=== PATIENT | female | born 1995 | race Caucasian/White ===

== ENCOUNTER 2017-02-23 16:36 | Emergency (ER) ==
[2017-02-23 16:41] VITALS: BP 132/81; TEMP 99; BMI 30.1
[2017-02-23] MEDS ORDERED: ZOFRAN 4 MG/2 ML IM STA (17:08)
[2017-02-23] MEDS ORDERED: MORPHINE 4 MG/ML SYRINGE IM STA (17:08)
--- NOTE | 2017-02-23 17:08 | ED.PDOC ---
General ED Provider: Dr. SANJAY CALDERÓN Chief Complaint: Headache Stated Complaint: headache Time Seen by Physician: 16:39 Mode of Arrival: Walk-In Information Source: Patient, Family Exam Limitations: No limitations Primary Care Provider: DARIO ALVAREZ Nursing and Triage Documentation Reviewed and Agree: Yes Neurological Complaint Exam - Headache Complaint/Exam Onset: Gradual Duration: 1 day Symptoms Are: Still present Episodes Lasting: Hours Worst Headache Ever: No Initial Severity: Moderate Current Severity: Moderate Location: Left, Temporal Character: Reports: Throbbing Aggravating: Reports: None Alleviating: Reports: None Associated Signs and Symptoms: Denies: Dizziness, Seizure, Nausea, Vomiting, Sinus pressure, Fever, Neck pain, Neck stiffness, Decreased LOC, Visual changes Related History: Reports: Similar episode Related Surgical History: Reports: None SAH Risk Factors: Reports: None Meningitis Risk Factors: Reports: None SDH Risk Factors: Reports: None Temporal Arteritis Risk Factors: Reports: None Fundoscopic Exam: Present: Normal Findings Papilledema Present: No Temporal Artery Tenderness: Present: None Sinus Tenderness: Present: None TMJ Tenderness: Present: None Glascow Coma Scale (see protocol): 15 Meningeal Signs Positive: No Pain on Passive Flexion-Positive Kernig's: No ROM Limited In: No Limitiations Focal Weakness: Present: None Focal Sensory Loss: Present: None Gait: Normal Nystagmus Present: No Gag Reflex Present: Yes Differential Diagnoses: Migraine Review of Systems - Review Of Systems Constitutional: Reports: No symptoms Eyes: Reports: No symptoms Ears, Nose, Mouth, Throat: Reports: No symptoms Respiratory: Reports: No symptoms Cardiac: Reports: No symptoms GI: Reports: No symptoms : Reports: No symptoms Musculoskeletal: Reports: No symptoms Skin: Reports: No symptoms Neurological: Reports: Headache Endocrine: Reports: No symptoms Hematologic/Lymphatic: Reports: No symptoms All Other Systems: Reviewed and Negative Past Medical History - Past Medical History Endocrine: Reports: None Cardiovascular: Reports: None Respiratory: Reports: None Hematological: Reports: None Gastrointestinal: Reports: None Genitourinary: Reports: None Neuro/Psych: Reports: None Musculoskeletal: Reports: None Cancer: Reports: None Last Menstrual Period: 02/19/17 - Surgical History General Surgical History: Reports: , Other (EAR TUBES) - Family History Family History: Reports: Kidney (Stone) - Social History Smoking Status: Never smoker Hx Substance Use: No Alcohol Screening: None - Immunizations Tetanus Shot up to Date: Yes Physical Exam - Physical Exam Appearance: Well-appearing, No pain distress, Well-nourished Eyes: PANTERA, EOMI, Conjunctiva clear ENT: Ears normal, Nose normal, Oropharynx normal Respiratory: Airway patent, Breath sounds clear, Breath sounds equal, Respirations nonlabored Cardiovascular: RRR, Pulses normal, No rub, No murmur GI/: Soft, Nontender, No masses, Bowel sounds normal, No Organomegaly Musculoskeletal: Normal strength, ROM intact, No edema, No calf tenderness Skin: Warm, Dry, Normal color Neurological: Sensation intact, Motor intact, Reflexes intact, Cranial nerves intact, Alert, Oriented Psychiatric: Affect appropriate, Mood appropriate Critical Care Note - Critical Care Note Total Time (mins): 0 Course - Course Vital Signs: Temp Pulse Resp BP Pulse Ox 02/23/17 16:37 99 F 89 20 132/81 96 Departure - Departure Time of Disposition: 17:07 Disposition: HOME SELF-CARE Discharge Problem: Headache Instructions: Migraine Headache (ED) Condition: Good Pt referred to PMD for follow-up: No Additional Instructions: Please call your Family Physician as soon as possible to schedule a follow-up appointment. Allergies/Adverse Reactions: Allergies azithromycin [From Zithromax] Adverse Reaction (Verified 08/21/14 11:31) Penicillins Adverse Reaction (Verified 08/21/14 11:31) prednisone Adverse Reaction (Verified 08/21/14 11:31) Home Medications: Ambulatory Orders Ondansetron HCl [Zofran] 8 mg PO BID PRN 08/21/14 Promethazine HCl [Phenergan Tab] 25 mg PO Q6-8H PRN 08/21/14
== END 2017-02-23 17:43 | disposition home or self-care (01) ==
LOC: ED 16:36
DX: R51 Headache (principal)
CPT/HCPCS: 96372; 99282

== ENCOUNTER 2017-07-14 17:55 | Emergency (ER) ==
[2017-07-14 17:59] VITALS: BP 121/64; TEMP 99.5; BMI 32.9
--- NOTE | 2017-07-14 18:14 | ED.PDOC ---
General ED Provider: Dr. SANJAY CALDERÓN Chief Complaint: Abdominal Pain Stated Complaint: abdominal pain RUQ Time Seen by Physician: 18:00 Mode of Arrival: Walk-In Information Source: Patient Exam Limitations: No limitations Primary Care Provider: DARIO ALVAREZ Nursing and Triage Documentation Reviewed and Agree: Yes GI Complaint Exam - Abdominal Pain Complaint/Exam Onset: Gradual Duration: CHRONIC AFTER BAHRAINI FRIES Symptoms Are: Resolved Timing: Intermittent Initial Severity: Moderate Current Severity: None Location of Pain: RUQ Radiates To: Reports: Back Character: Reports: Cramping Aggravating: Reports: Food Alleviating: Reports: None Associated Signs and Symptoms: Denies: Diaphoresis, Fever, Cough, Chest pain, Dizziness, Back pain, Constipation, Blood in stool, Dysuria, Urinary frequency, Decreased urine output, Decreased appetite, Vaginal bleeding, Vaginal discharge , Nausea, Vomiting, Diarrhea, Sore throat, Decreased activity Related History: Reports: Similar episode AAA Risk Factors: Reports: None Cardiac Risk Factors: Reports: None Ectopic Risk Factors: Reports: None Ovarian Torsion Risk Factors: Reports: None Surgical Obstruction Risk Factors: Reports: None Related Surgical History: Reports: None Patient Rh Status: Unknown Abdominal Findings: Present: None Differential Diagnoses: GB Review of Systems - Review Of Systems Constitutional: Reports: No symptoms Eyes: Reports: No symptoms Ears, Nose, Mouth, Throat: Reports: No symptoms Respiratory: Reports: No symptoms Cardiac: Reports: No symptoms GI: Reports: Abdominal pain (RUQ), Nausea : Reports: No symptoms Musculoskeletal: Reports: No symptoms Skin: Reports: No symptoms Neurological: Reports: No symptoms Endocrine: Reports: No symptoms Hematologic/Lymphatic: Reports: No symptoms All Other Systems: Reviewed and Negative Past Medical History - Past Medical History Endocrine: Reports: None Cardiovascular: Reports: None Respiratory: Reports: None Hematological: Reports: None Gastrointestinal: Reports: None Genitourinary: Reports: None Neuro/Psych: Reports: None Musculoskeletal: Reports: None Cancer: Reports: None Last Menstrual Period: 07/12/17 - Surgical History General Surgical History: Reports: , Other (EAR TUBES) - Family History Family History: Reports: Kidney (Stone) - Social History Smoking Status: Never smoker Hx Substance Use: No Alcohol Screening: None - Immunizations Tetanus Shot up to Date: No Physical Exam - Physical Exam Appearance: Well-appearing, No pain distress, Well-nourished Eyes: PANTERA, EOMI, Conjunctiva clear ENT: Ears normal, Nose normal, Oropharynx normal Respiratory: Airway patent, Breath sounds clear, Breath sounds equal, Respirations nonlabored Cardiovascular: RRR, Pulses normal, No rub, No murmur GI/: Soft, Nontender, No masses, Bowel sounds normal, No Organomegaly Musculoskeletal: Normal strength, ROM intact, No edema, No calf tenderness Skin: Warm, Dry, Normal color Neurological: Sensation intact, Motor intact, Reflexes intact, Cranial nerves intact, Alert, Oriented Psychiatric: Affect appropriate, Mood appropriate Interpretation - Radiology Interpretation Radiology Interpretation By: Radiologist Critical Care Note - Critical Care Note Total Time (mins): 0 Course - Course Orders, Labs, Meds: Orders Category Date Time Status AMYLASE Stat LAB 07/14/17 18:11 Ordered CBC W/ AUTO DIFF Stat LAB 07/14/17 18:11 Ordered COMPREHENSIVE METABOLIC PANEL Stat LAB 07/14/17 18:11 Ordered LIPASE Stat LAB 07/14/17 18:11 Ordered URINALYSIS C & S IF INDICATED Stat LAB 07/14/17 18:[address] ABDOMEN/PELVIS WO CONTRAST Stat RADS 07/14/17 18:11 Ordered Vital Signs: Temp Pulse Resp BP Pulse Ox 07/14/17 17:56 99.5 F 100 H 18 121/64 98 Departure - Departure Time of Disposition: 19:20 Disposition: HOME SELF-CARE Discharge Problem: Abdominal pain Instructions: Abdominal Pain (ED) Condition: Good Pt referred to PMD for follow-up: Yes Additional Instructions: Please call your Family Physician as soon as possible to schedule a follow-up appointment. Allergies/Adverse Reactions: Allergies azithromycin [From Zithromax] Adverse Reaction (Verified 07/14/17 17:59) Penicillins Adverse Reaction (Verified 07/14/17 17:59) prednisone Adverse Reaction (Verified 07/14/17 17:59) Home Medications: Ambulatory Orders Topiramate [Topamax] 50 mg PO DAILY 07/14/17
[2017-07-14 18:30] LABS: BASOPHILS % (AUTO) 0.4 % (0.0-3.0); EOSINOPHILS # (AUTO) 0.1 K/ul (0.0-0.7); EOSINOPHILS % (AUTO) 1.6 % (0.0-7.0); HEMATOCRIT 38.8 % (37.0-47.0); HEMOGLOBIN 12.8 g/dl (12.0-16.0); IMMATURE GRANULOCYTE % (AUTO) 0.4 % (0.0-5.0); LYMPHOCYTES # (AUTO) 2.6 K/uL (0.60-3.4); LYMPHOCYTES % (AUTO) 38.8 (10.0-50.0); MEAN CORPUSCULAR HEMOGLOBIN 27.6 pg (27.0-31.0); MEAN CORPUSCULAR VOLUME 83.6 fl (81.0-99.0); MONOCYTES # (AUTO) 0.6 K/uL (0.4-2.0); MONOCYTES % (AUTO) 9.3 (0-10); NEUTROPHILS # (AUTO) 3.3 K/ul (2.0-6.9); NEUTROPHILS % (AUTO) 49.5; PLATELET COUNT 260 10^3/uL (140-440); RED BLOOD COUNT 4.64 10^6/ul (4.20-5.40)
[2017-07-14 18:32] LABS: BILIRUBIN,URINE Negative (NEGATIVE); KETONES,URINE Trace (NEGATIVE); LEUKOCYTE ESTERASE ,URINE Negative (NEGATIVE); NITRITE,URINE Negative (NEGATIVE); PROTEIN,URINE Negative (NEGATIVE); URINE, BLOOD Negative (NEGATIVE)
[2017-07-14 18:35] LABS: ADD URINE MICROSCOPIC YES; BACTERIA,URINE TRACE (NOT PRESENT); URINE PREGNANCY INTERNAL QC INTERNAL QC VALID
[2017-07-14] MEDS ORDERED: LIDOCAINE HCL 1% SDV SUBCUT STA (18:39)
[2017-07-14] MEDS ORDERED: ROCEPHIN IM STA (18:39)
[2017-07-14 18:50] LABS: ALBUMIN 3.4 g/dL (3.4-5.0); ANION GAP 9.8; BILIRUBIN,TOTAL 0.17 mg/dL (0.00-1.20); BUN/CREATININE RATIO 16.25; CALCIUM 9.2 mg/dL (8.2-10.2); CREATININE 0.8 mg/dL (0.60-1.30); POTASSIUM 3.8 mmol/L (3.5-5.10); TOTAL PROTEIN 6.8 g/dL (6.4-8.2)
--- NOTE | 2017-07-14 19:13 | CT ---
EXAM: CT scan abdomen pelvis without contrast HISTORY: Upper abdominal pain nausea COMPARISON: CT scan abdomen pelvis 11/30/2015 FINDINGS: Contiguous axial images obtained through the abdomen pelvis without contrast utilizing 5-m m collimation. Sagittal and coronal reconstructions were imaged and reviewed. The visualized lung b ases are clear. The gallbladder is contracted. There is a hiatal hernia. The liver, pancreas, sple en and adrenal glands have normal unenhanced CT appearance. The abdominal aorta is normal course and caliber. Punctate nonobstructive calculi are seen in the bilateral kidneys. There is no CT evidenc e of appendicitis. There is scattered subcentimeter mesenteric lymph nodes. There is no free fluid o r inflammatory changes. Bone windows reveals no evidence of lytic or blastic lesions IMPRESSION: No acute intra-abdominal findings. Nonobstructive bilateral nephrolithiasis. Small hiatal hernia
== END 2017-07-14 19:20 | disposition home or self-care (01) ==
LOC: ED 17:55
DX: R10.11 Right upper quadrant pain (principal)
CPT/HCPCS: 36415; 80053; 81001; 81025; 82150; 83690; 85025; 87040; 99283

== ENCOUNTER 2017-07-14 19:39 | Emergency (ER) ==
[2017-07-14 19:40] VITALS: BMI 32.9
[2017-07-14 19:43] VITALS: BP 117/75; TEMP 97.2
[2017-07-14] MEDS ORDERED: SODIUM CHLORIDE 1,000 ML IV STA (19:43)
[2017-07-14] MEDS ORDERED: ZOFRAN 4 MG/2 ML IVP STA (19:44)
[2017-07-14] MEDS ORDERED: DILAUDID 1 MG/ML SYRINGE IVP STA ×2 (19:44→20:58)
[2017-07-14] MEDS ORDERED: DILAUDID 2 MG/ML SYRINGE ONE ×2 (19:53→21:00)
[2017-07-14] MEDS ORDERED: PROTONIX IV IVP STA (20:32)
--- NOTE | 2017-07-14 20:46 | ED.PDOC ---
General ED Provider: Dr. DUNG ZULUAGA-ER Chief Complaint: Abdominal Pain Stated Complaint: i was seen earlier today--they told me it was my gb--i didnt get any tx--now its hurting more wtih nausea--denies any fever , chillls, cp or dyspnea Time Seen by Physician: 19:45 Information Source: Patient, Family Exam Limitations: No limitations Nursing and Triage Documentation Reviewed and Agree: Yes GI Complaint Exam - Abdominal Pain Complaint/Exam Onset: Gradual Duration: several weeks Symptoms Are: Still present Initial Severity: Moderate Location of Pain: Discrete Radiates To: Reports: Back Character: Reports: Dull, Aching, Throbbing, Cramping Aggravating: Reports: Movement Alleviating: Reports: None Associated Signs and Symptoms: Reports: Decreased appetite, Nausea, Vomiting. Denies: Diaphoresis, Fever, Cough, Chest pain, Dizziness, Back pain, Constipation, Blood in stool, Urinary frequency, Decreased urine output, Vaginal bleeding, Vaginal discharge, Diarrhea, Sore throat, Decreased activity Ovarian Torsion Risk Factors: Reports: Reproductive age Surgical Obstruction Risk Factors: Reports: None Abdominal Findings: Present: None Differential Diagnoses: GB Review of Systems - Review Of Systems Constitutional: Reports: No symptoms Eyes: Reports: No symptoms Ears, Nose, Mouth, Throat: Reports: No symptoms, Throat swelling Respiratory: Reports: No symptoms Cardiac: Reports: No symptoms GI: Reports: Abdominal pain, Nausea, Poor appetite, Vomiting : Reports: No symptoms Musculoskeletal: Reports: No symptoms Skin: Reports: No symptoms Neurological: Reports: No symptoms Endocrine: Reports: No symptoms Hematologic/Lymphatic: Reports: No symptoms All Other Systems: Reviewed and Negative Past Medical History - Past Medical History Previously Healthy: No Endocrine: Reports: None Cardiovascular: Reports: None Respiratory: Reports: None Hematological: Reports: None Gastrointestinal: Reports: None Genitourinary: Reports: None Neuro/Psych: Reports: None Musculoskeletal: Reports: None Cancer: Reports: None Last Menstrual Period: 3 days - Surgical History General Surgical History: Reports: , Other (EAR TUBES) - Family History Family History: Reports: Kidney (Stone) - Social History Smoking Status: Never smoker Hx Substance Use: No Alcohol Screening: None Lives: With family Physical Exam - Physical Exam Appearance: Well-appearing, No pain distress, Well-nourished Eyes: PANTERA, EOMI, Conjunctiva clear ENT: Ears normal Neck: Supple Respiratory: Airway patent, Breath sounds clear, Breath sounds equal, Respirations nonlabored Cardiovascular: RRR, Pulses normal, No rub, No murmur GI/: Soft, No masses, Bowel sounds normal, No Organomegaly, Tender Musculoskeletal: Normal strength Skin: Warm, Dry, Normal color Neurological: Sensation intact Psychiatric: Affect appropriate, Mood appropriate Interpretation - Radiology Interpretation Radiology Interpretation By: Radiologist Radiology Results: Negative Exam Interpreted: CT Scan Re-Evaluation - Re-Evaluation Time of Re-Evaluation: 21:28 Status: Improved Vital Signs Stable: Yes Pain Level: 0 Appearance: NAD Lungs: Clear Skin: Warm and Dry Neuro: Alert and Oriented X3 CV: RRR Critical Care Note - Critical Care Note Total Time (mins): 0 Course - Course Orders, Labs, Meds: Orders Category Date Time Status ED IV/MEDIPORT/POWERPORT .ONCE EMERGENCY 07/14/17 19:43 Active 0.9 % Sodium Chloride [Saline Flush] MEDS 07/14/17 19:43 Ordered 1 syr IVF PRN PRN Diphenhydramine Inj [Benadryl] MEDS 07/14/17 21:28 Stat 50 mg IVP ONCE STA Hydromorphone HCl [Dilaudid 1 mg/ml Syringe] MEDS 07/14/17 19:44 Discontinued 1 mg IVP ONCE STA Hydromorphone HCl [Dilaudid 1 mg/ml Syringe] MEDS 07/14/17 20:58 Discontinued 1 mg IVP ONCE STA Hydromorphone HCl/Pf [Dilaudid 2 mg/ml Syringe] MEDS 07/14/17 19:53 Discontinued 2 mg .ROUTE .STK-MED ONE Hydromorphone HCl/Pf [Dilaudid 2 mg/ml Syringe] MEDS 07/14/17 21:00 Discontinued 2 mg .ROUTE .STK-MED ONE Ondansetron HCl/Pf [Zofran 4 mg/2 ml] MEDS 07/14/17 19:44 Discontinued 4 mg IVP ONCE STA Pantoprazole Sodium [Protonix IV] MEDS 07/14/17 20:32 Discontinued 40 mg IVP ONCE STA Sodium Chloride 0.9% [Sodium Chloride] 1,000 ml MEDS 07/14/17 19:43 Discontinued IV BOLUS Medications Generic Name Dose Route Start Last Admin Trade Name Freq PRN Reason Stop Dose Admin Sodium Chloride 1 syr 07/14/17 19:43 07/14/17 21:11 Saline Flush IVF 1 syr PRN PRN Administration To flush IV Discontinued Medications Generic Name Dose Route Start Last Admin Trade Name Garcia PRN Reason Stop Dose Admin Hydromorphone HCl 1 mg 07/14/17 19:44 07/14/17 20:02 Dilaudid 1 Mg/Ml Syringe IVP 07/14/17 19:45 Not Given ONCE STA Hydromorphone HCl 1 mg 07/14/17 20:58 07/14/17 21:10 Dilaudid 1 Mg/Ml Syringe IVP 07/14/17 20:59 Not Given ONCE STA Sodium Chloride 1,000 mls @ 1,000 mls/hr 07/14/17 19:43 07/14/17 19:57 Sodium Chloride IV 07/14/17 20:42 1,000 mls/hr BOLUS STA Administration Ondansetron HCl 4 mg 07/14/17 19:44 07/14/17 19:59 Zofran 4 Mg/2 Ml IVP 07/14/17 19:45 4 mg ONCE STA Administration Pantoprazole Sodium 40 mg 07/14/17 20:32 07/14/17 20:52 Protonix Iv IVP 07/14/17 20:33 40 mg ONCE STA Administration Vital Signs: Temp Pulse Resp BP Pulse Ox 07/14/17 19:40 97.2 F L 93 H 18 117/75 97 Departure - Departure Time of Disposition: 21:29 Disposition: HOME SELF-CARE Discharge Problem: Abdominal pain Instructions: Acute Abdominal Pain (ED) Condition: Good Pt referred to PMD for follow-up: Yes Additional Instructions: low fat diet=--talk to your pcp about gb testing Allergies/Adverse Reactions: Allergies azithromycin [From Zithromax] Adverse Reaction (Verified 07/14/17 17:59) Penicillins Adverse Reaction (Verified 07/14/17 17:59) prednisone Adverse Reaction (Verified 07/14/17 17:59) Home Medications: Ambulatory Orders Topiramate [Topamax] 50 mg PO DAILY 07/14/17 Disposition Discussed With: Patient, Family
[2017-07-14] MEDS ORDERED: BENADRYL IVP STA (21:28)
[2017-07-14] MEDS ORDERED: PHENERGAN 25 MG/ML VIAL 25 MG in SODIUM CHLORIDE 50 ML IV STA (21:30)
[2017-07-14] MEDS ORDERED: MORPHINE 2 MG/ML SYRINGE IVP PRN (21:30)
== END 2017-07-14 22:10 | disposition home or self-care (01) ==
LOC: ED 19:39
DX: R10.9 Unspecified abdominal pain (principal); R11.2 Nausea with vomiting, unspecified; R10.11 Right upper quadrant pain
CPT/HCPCS: 36415; 80053; 81001; 81025; 82150; 83690; 85025; 87040; 96361; 96374; 96375; 96376; 99283